=== PATIENT | female | born 1975 | race African-American/Black ===

== ENCOUNTER 2017-03-08 08:22 | Emergency (ER) | payer BC, OTHER ==
[~2017-03-08] VITALS: Ht 165.1 cm; Wt 73.5 kg
[~2017-03-08 08:22] MED LIST: ASPI325T8 PO; CHOL10003 PO; CYAN10005 PO; FERR325T58 PO; IBUP400T18 PO; MULT1TAB52 PO; OMEP40CA2 PO; PRED50TA PO
[2017-03-08 08:25] VITALS: BP 137/84
[2017-03-08 09:18] LABS: BACTERIA,URINE 0 /HPF (0-FEW); BILIRUBIN,URINE NEG (NEG); CLARITY,URINE HAZY; COLOR,URINE YELLOW; GLUCOSE,URINE NEG (NEG); NITRITE,URINE NEG (NEG); SQUAMOUS EPITHELIAL CELL,UR OCC /LPF; UROBILINOGEN,URINE 0.2 mg/dL (0.2 mg/dL)
[2017-03-08] MEDS ORDERED: NITR100C62 PO (09:25)
--- NOTE | 2017-03-08 09:25 | PHYS DOC ---
Past History Past Medical History: No Pertinent History Past Surgical History: Other Alcohol Use: None Drug Use: None Adult General Chief Complaint Chief Complaint: SORE THROAT HPI HPI Patient is a 41 year old female who presents with illness. The patient reports 6 day history of nasal congestion, rhinorrhea, sore throat, dull generalized headache, dysuria. She denies fevers/chills, cough, chest pain, shortness of breath, abdominal pain, flank pain, hematuria, vaginal bleeding/discharge. She reports that she took cipro as well as bactrim this month for UTI, just completed bactrim 1 week ago now with recurrence of symptoms. Has history of frequent UTI. Denies significant past medical history. She chose not to get flu vaccine. She works at a healthcare facility. PCP is Dr. Aleman. Review of Systems Review of Systems Constitutional: Denies fever or chills Eyes: Denies drainage HENT: Reports nasal congestion & sore throat Respiratory: Denies cough or shortness of breath Cardiovascular: Denies chest pain GI: Denies abdominal pain, nausea, vomiting, or diarrhea : Reports dysuria, denies hematuria Musculoskeletal: Denies back pain or joint pain Integument: Denies rash Neurologic: Reports headache Allergies Allergies Allergies Coded Allergies Type Severity Reaction Last Updated Verified tramadol Allergy Severe Hives 05/08/15 Yes latex Allergy Unknown Rash 12/20/14 No Physical Exam Physical Exam Constitutional: Well developed, well nourished, no acute distress, non-toxic appearance. HENT: Normocephalic, atraumatic, bilateral external ears normal, TMs clear bilaterally, oropharynx moist, posterior oropharynx mild erythema without tonsillar enlargement/exudate, nose normal. Eyes: conjunctiva normal, no discharge. Neck: supple, no stridor. no cervical lymphadenopathy or meningismus. Cardiovascular: RRR, no murmurs, no edema. Lungs & Thorax: LCTAB, no wheezing, no respiratory distress. Abdomen: soft, nontender, nondistended. Skin: Warm, dry, no erythema, no rash. Back: No CVA tenderness. Extremities: No tenderness, no edema. Neurologic: Alert and oriented X 3, no focal deficits noted. Psychologic: Affect normal, judgement normal, mood normal. Current Patient Data Vital Signs Vital Signs Date Time Temp Pulse Resp B/P (MAP) Pulse Ox O2 Delivery O2 Flow Rate FiO2 03/08/17 08:25 89.3 79 16 100 Room Air Lab Results Laboratory Tests Test 03/08/17 08:37 03/08/17 08:49 Urine Collection Type Unknown Urine Color Yellow Urine Clarity Hazy Urine pH 5.5 Urine Specific [place] <=1.005 Urine Protein Neg (NEG-TRACE) Urine Glucose (UA) Neg mg/dL (NEG) Urine Ketones (Stick) Neg mg/dL (NEG) Urine Blood Trace (NEG) Urine Nitrite Neg (NEG) Urine Bilirubin Neg (NEG) Urine Urobilinogen Dipstick 0.2 mg/dL (0.2 mg/dL) Urine Leukocyte Esterase Small (NEG) Urine RBC 1-2 /HPF (0-2) Urine WBC 11-20 /HPF (0-4) Urine Squamous Epithelial Cells Occ /LPF Urine Bacteria 0 /HPF (0-FEW) Urine Mucus Slight /LPF Group A Streptococcus Rapid Positive (NEGATIVE) EKG EKG [] Radiology/Procedures Radiology/Procedures [] Course & Med Decision Making Course & Med Decision Making Pertinent Labs and Imaging studies reviewed. (See chart for details) The patient presents with URI symptoms including sore throat, as well as dysuria. Vitals stable, afebrile. Rapid strep positive, UA also indicates UTI. She preferred IM antibiotics for strep, bicillin administered here. Gave macrobid for UTI & culture was sent. Recommend rest, hydration, tylenol/ ibuprofen for pain or fever. Follow up with PCP in 2-3 days. Come back for high fever, severe pain, uncontrolled vomiting, any otherwise worsening condition. Discharged home in stable condition. [] Dragon Disclaimer Dragon Disclaimer This chart was dictated in whole or in part using Voice Recognition software in a busy, high-work load, and often noisy Emergency Department environment. It may contain unintended and wholly unrecognized errors or omissions. Departure Departure: Impression: Primary Impression: Strep pharyngitis Additional Impression: Urinary tract infection Disposition: 01 HOME, SELF-CARE Condition: STABLE Referrals: YISEL ESPARZA DO (PCP) Patient Instructions: Strep Throat, [id number], Urinary Tract Infection, Easy -to-Read Additional Instructions: You were seen in the emergency department today for strep throat and urinary tract infection. You received a shot here to treat strep. Please take the prescribed antibiotic for urinary tract infection. A culture has been sent. Drink fluids and take Tylenol or ibuprofen for pain or fever. Follow-up with primary care physician within 2-3 days. Return to the emergency department for high fever, severe pain, uncontrolled vomiting, any otherwise worsening condition. Scripts Nitrofurantoin Monohyd/M-Cryst (MACROBID 100 MG CAPSULE) 100 Mg Capsule 1 CAP PO BID, #14 CAP Prov: RISHI IGLESIAS MD 03/08/17 Problem Qualifiers RISHI IGLESIAS MD Mar 08, 2017 09:25
[2017-03-08] MEDS ORDERED: PENICILLIN G BENZATHINE LA 1,200,000 UNIT/2 ML DISP.SYRIN. IM ONE (09:45)
[2017-03-08 09:46] LABS: U PREG PATIENT NEGATIVE (NEG)
== END 2017-03-08 09:58 | disposition home or self-care (01) ==
LOC: ER 08:22
DX: J02.0 Streptococcal pharyngitis (principal); N39.0 Urinary tract infection, site not specified; Z91.040 Latex allergy status; Z88.6 Allergy status to analgesic agent
CPT/HCPCS: 81001; 81025; 87086; 87880; 96372; 99284; J0561

== ENCOUNTER 2017-06-24 00:10 | Emergency (ER) | payer BC, OTHER ==
[~2017-06-24] VITALS: Ht 165.1 cm; Wt 74.8 kg
[~2017-06-24 00:10] MED LIST changes: +NITR100C62 PO
--- NOTE | 2017-06-24 00:31 | ED.ADGEN ---
Past History Past Medical History: No Pertinent History, STD, UTI Past Surgical History: Other Alcohol Use: None Drug Use: None Adult General Chief Complaint Chief Complaint " ..I got a vaginal discharge... nasal congestion, sore throat, it feels like I got UTI... 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 who presents with above hx and complaints dysuria, urine frequency, vaginal discharge, pharyngitis, malaise, and subjective fever. No recent travel. No specific ill contacts. Patient may have possibility of . Has 3. Prior episodes of STDs. Patient frequently has urinary tract infections. Patient normally follows with Dr. Aleman. Review of Systems Review of Systems Constitutional: Subjective fever Eyes: Denies change in visual acuity, redness, or eye pain [] HENT: Complaints of nasal congestion and sore throat [] Respiratory: Denies cough or shortness of breath [] Cardiovascular: No additional information not addressed in HPI [] GI:Complaints of abdominal pain, vomiting, bloody stools or diarrhea []Nausea : History of dysuria or hematuria []history of vaginal discharge Musculoskeletal: Denies back pain or joint pain [] Integument: Denies rash or skin lesions [] Neurologic: Denies headache, focal weakness or sensory changes [] Endocrine: Denies polyuria or polydipsia [] All other systems were reviewed and found to be within normal limits, except as documented in this note. Family History Family History Noncontributory Current Medications Current Medications Current Medications Medications (Trade) Dose Ordered Sig/Temitope Start Time Stop Time Status Last Admin Dose Admin Azithromycin (Zithromax) 1,000 mg 1X ONCE 06/24/17 02:00 06/24/17 02:01 DC 06/24/17 02:15 1,000 MG Ceftriaxone Sodium 1 gm/ Sodium Chloride 50 ml @ 100 mls/hr 1X ONCE 06/24/17 01:15 06/24/17 01:44 UNV Ceftriaxone Sodium (Rocephin Im) 1 gm 1X ONCE 06/24/17 01:45 06/24/17 01:53 DC 06/24/17 01:35 1 GM Ceftriaxone Sodium (Rocephin) 1 gm STK-MED ONCE 06/24/17 01:17 06/24/17 01:18 DC Metronidazole (Flagyl) 2,000 mg 1X ONCE 06/24/17 02:00 06/24/17 02:01 DC 06/24/17 02:14 2,000 MG Ondansetron HCl (Zofran Odt) 8 mg 1X ONCE 06/24/17 02:00 06/24/17 02:01 DC 06/24/17 02:15 8 MG See nursing for home medications Allergies Allergies Allergies Coded Allergies Type Severity Reaction Last Updated Verified tramadol Allergy Severe Hives 06/24/17 Yes latex Allergy Unknown Rash 06/24/17 No oxycodone Allergy Unknown 06/24/17 Yes Physical Exam Physical Exam Constitutional: moderately acute distress, non-toxic appearance. [] HENT: Normocephalic, atraumatic, bilateral external ears normal, oropharynx moist, no oral exudates, nose rhinorrhea. Eyes: PERRLA, EOMI, conjunctiva normal, no discharge. [] Neck: Normal range of motion, no tenderness, supple, no stridor. [] Cardiovascular:Heart rate regular rhythm, no murmur [] Lungs & Thorax: Bilateral breath sounds clear to auscultation [] Abdomen: Bowel sounds normal, soft, mild suprapubic tenderness, no masses, no pulsatile masses. [] Vaginal discharge. Minimal cervical motion tenderness. Hard stool in rectal vault. Skin: Warm, dry, no erythema, no rash. [] Back: No tenderness, mild CVA tenderness. [] Extremities: No tenderness, no cyanosis, no clubbing, ROM intact, no edema. [] Neurologic: Alert and oriented X 3, normal motor function, normal sensory function, no focal deficits noted. [] Psychologic: Affect anxiousl, judgement normal, mood normal. [] Current Patient Data Vital Signs Vital Signs Date Time Temp Pulse Resp B/P (MAP) Pulse Ox O2 Delivery O2 Flow Rate FiO2 06/24/17 02:25 97.8 60 16 143/83 (103) 99 Room Air Lab Results Laboratory Tests Test 06/24/17 00:51 06/24/17 01:04 06/24/17 01:25 Urine Collection Type Unknown Urine Color Yellow Urine Clarity Hazy Urine pH 5.0 Urine Specific [place] >=1.030 Urine Protein 30 mg/dl (NEG-TRACE) Urine Glucose (UA) Neg mg/dL (NEG) Urine Ketones (Stick) 15 mg/dL (NEG) Urine Blood Trace (NEG) Urine Nitrite Pos (NEG) Urine Bilirubin Neg (NEG) Urine Urobilinogen Dipstick 0.2 mg/dL (0.2 mg/dL) Urine Leukocyte Esterase Trace (NEG) Urine RBC 0 /HPF (0-2) Urine WBC 20-40 /HPF (0-4) Urine Squamous Epithelial Cells Many /LPF Urine Bacteria Few /HPF (0-FEW) POC Urine HCG, Qualitative hcg negative (Negative) Influenza Type A (Rapid) Negative (NEGATIVE) Influenza Type B (Rapid) Negative (NEGATIVE) Group A Streptococcus Rapid Negative (NEGATIVE) Microbiology 06/24/17 Wet Prep - Final, Complete Microbiology 06/24/17 Wet Prep - Final, Complete EKG EKG [] Radiology/Procedures Radiology/Procedures [] Course & Med Decision Making Course & Med Decision Making Pertinent Labs and Imaging studies reviewed. (See chart for details) Patient take Keflex 500 mg 3 times a day for next 7 days. Patient use MetroGel vaginally nightly for next 7 days. Patient take Diflucan daily for 3 days after completing antibiotics. Patient follow-up primary care pending labs. Patient practice safe sex. Patient push fruit juices and vitamin C drinks. Patient return if any concerns. Final Impression Final Impression 1. Dysuria[] 2. Cervicitis 3. Urinary tract infection 4. Bacterial vaginosis Problems: Dragon Disclaimer Dragon Disclaimer This electronic medical record was generated, in whole or in part, using a voice recognition dictation system. KULDEEP SEVERINO MD Jun 24, 2017 00:31
[2017-06-24] MEDS ORDERED: FLUC150T PO (00:55)
[2017-06-24] MEDS ORDERED: cefTRIAXone SODIUM 1 GM VIAL IV ONE (01:17)
[2017-06-24] MEDS ORDERED: cefTRIAXone IV Push 1 GM VIAL. IVP ONE (01:30)
[2017-06-24] MEDS ORDERED: cefTRIAXone IM 1 GM VIAL IM ONE (01:45)
[2017-06-24] MEDS ORDERED: CEPH-264 PO (01:52)
[2017-06-24] MEDS ORDERED: AZITHROMYCIN 250 MG TABLET. PO ONE (02:00)
[2017-06-24] MEDS ORDERED: metroNIDAZOLE 500 MG TABLET PO ONE (02:00)
[2017-06-24] MEDS ORDERED: ONDANSETRON ODT 4 MG TAB.RAPDIS PO ONE (02:00)
[2017-06-24 02:07] LABS: BILIRUBIN,URINE NEG (NEG); CLARITY,URINE HAZY; COLOR,URINE YELLOW; GLUCOSE,URINE NEG (NEG); NITRITE,URINE POS (NEG); UROBILINOGEN,URINE 0.2 mg/dL (0.2 mg/dL)
[2017-06-24 02:08] LABS: BACTERIA,URINE FEW /HPF (0-FEW); RBC,URINE 0 /HPF (0-2); SQUAMOUS EPITHELIAL CELL,UR MANY /LPF; WBC,URINE 20-40 /HPF (0-4)
[2017-06-24 02:21] LABS: INFLUENZA A PATIENT NEGATIVE (NEGATIVE); INFLUENZA B PATIENT NEGATIVE (NEGATIVE)
[2017-06-24 02:25] VITALS: BP 143/83
[2017-06-24] MEDS ORDERED: METR70GE14 VG (02:26)
[2017-06-25 14:10] LABS: CHLAMYDIA PROBE Negative (Negative)
== END 2017-06-24 02:29 | disposition home or self-care (01) ==
LOC: ER 00:10
DX: N39.0 Urinary tract infection, site not specified (principal); N72 Inflammatory disease of cervix uteri; N76.0 Acute vaginitis; B96.89 Other specified bacterial agents as the cause of diseases classified elsewhere; J02.9 Acute pharyngitis, unspecified; Z88.5 Allergy status to narcotic agent; Z88.6 Allergy status to analgesic agent; Z91.040 Latex allergy status
CPT/HCPCS: 36415; 81001; 81025; 87070; 87086; 87491; 87591; 87804; 87880; 96372; 99284; J0456; J0696; Q0111; Q0162